=== PATIENT | male | born 1995 | race African-American/Black ===

== ENCOUNTER 2020-02-18 05:58 | Emergency (ER) | payer SELFPAY ==
[~2020-02-18] VITALS: Ht 193 cm; Wt 68.0 kg
[2020-02-18] MEDS ORDERED: ACETAMINOPHEN 325MG TABLET PO ONE (06:45)
[2020-02-18] MEDS ORDERED: LIDOCAINE HCL/PF 1% 10 MG/ML 5ML VIAL IJ ONE (08:30)
[2020-02-18] MEDS ORDERED: IBUPROFEN 600MG TABLET PO ONE (08:30)
[2020-02-18 09:35] VITALS: BP 125/80
== END 2020-02-18 09:36 | disposition home or self-care (01) ==
LOC: ER 05:58
DX: N45.4 Abscess of epididymis or testis (principal); F12.10 Cannabis abuse, uncomplicated; F17.210 Nicotine dependence, cigarettes, uncomplicated; Z71.6 Tobacco abuse counseling
CPT/HCPCS: 10060; 76870; 93976; 99284; 99406; J3490